=== PATIENT | female | born 1955 | race Caucasian/White ===

== ENCOUNTER → 2019-02-09 | Outpatient (CLI) | payer BC ==
[~2019-02-09] MED LIST: Z.0.AMLODIPINE BESYL PO; Z.0.LISINOPRIL20 MG
--- NOTE | 2019-02-09 16:19 | Diagnostic Imaging Report ---
CT of the chest, without contrast, 02/09/2019. History: Chronic cough. Comparison: 11/13/2010. Technique: Multidetector CT scanning of the chest was performed from the level of the apices to the upper abdomen without contrast. Coronal and sagittal multiplanar reformations were obtained. RADIATION DOSE: Total DLP: 418 mGy*cm Dose modulation, iterative reconstruction, and/or weight based adjustment of the mA/kV was utilized to reduce the radiation dose to as low as reasonably achievable. Discussion: Evaluation is limited without IV contrast. Chest: The heart, aorta, and pulmonary vessels are normal in size. Right thyroid hypodensity is noted. There is no gross evidence of adenopathy. There is biapical pleural thickening and upper lobe scarring. Scattered linear scarring is present bilaterally. There is no evidence of consolidation, nodule, or pleural effusion. Limited evaluation of the upper abdomen shows 1.4 right adrenal and 1.3 cm left adrenal nodules which measure less than 10 Hounsfield units in density. Bones and soft tissues: No acute abnormality. There is severe dextroscoliosis of the thoracic spine. Bilateral spinal rods are present. IMPRESSION: 1. No acute or suspicious pulmonary abnormality. 2. Right thyroid hypodensity is evaluated on ultrasound performed on the same day. 3. Benign bilateral adrenal adenomas. Signed by: Owen Cleveland on 02/09/2019 4:16 PM
--- NOTE | 2019-02-09 16:23 | Diagnostic Imaging Report ---
Thyroid ultrasound. History: Thyroid nodule Comparison: None available. Discussion: Transverse and longitudinal images of the thyroid were obtained demonstrating normal echogenicity of the thyroid. The right thyroid lobe measures 5.3 x 1.9 x 2.1 cm. An oval circumscribed septated cyst is present in the lower pole measuring 2.4 x 1.5 x 1.8 cm. Additional cysts are noted superiorly and inferiorly measuring 0.5 and 0.7 cm respectively. TI-RADS 1 The left lobe measures 4.6 x 1.5 x 1.7 cm. 2 oval circumscribed mixed solid/cystic nodules are present, one in the interpolar region measuring 0.7 x 0.4 x 0.6 cm and one in the lower pole measuring 0.8 x 0.5 x 0.7 cm. TI-RADS 3 The isthmus measures 3 mm in thickness. IMPRESSION: Benign cysts on the right and subcentimeter nodules on the left. Signed by: Owen Cleveland on 02/09/2019 4:19 PM
== END ==
LOC: US 13:59
PROVIDERS: ATTEND Family Medicine
DX: R05 Cough (principal); E04.1 Nontoxic single thyroid nodule
CPT/HCPCS: 71250; 76536